=== PATIENT | female | born 1955 | race Two or more races ===

== ENCOUNTER 2025-01-10 23:37 | Emergency (ER) | payer OTHER ==
[~2025-01-10] VITALS: Ht 152.4 cm; Wt 85.7 kg
[2025-01-10 23:58] VITALS: BP 158/85; O2SAT 96
[2025-01-11] MEDS ORDERED: SYNTHROID75 MCG PO (02:03)
[2025-01-11] MEDS ORDERED: ACETAMINOPHEN 500 MG GEL..CAP PO STA (02:10)
[2025-01-11] MEDS ORDERED: ORPHENADRINE CITRATE 30 MG/ML AMPUL IM STA (02:10)
[2025-01-11] MEDS ORDERED: ACETAMINOPHEN 500 MG GEL..CAP PO ONE (02:21)
[2025-01-11] MEDS ORDERED: ORPHENADRINE CITRATE 30 MG/ML AMPUL ONE (02:21)
[2025-01-11 03:07] LABS: PH,URINE 5.5 (5.0-8.0); URINE APPEARANCE Clear; URINE BILIRRUBIN Negative (NEGATIVE); URINE BLOOD Small; URINE COLOR Yellow; URINE GLUCOSE Negative (NEGATIVE); URINE KETONE Negative (NEGATIVE); URINE LEUKOCYTE Negative; URINE NITRATE Negative; URINE PROTEIN Negative (NEGATIVE); URINE UROBILINOGEN 0.2 E.U./dl
[2025-01-11 03:11] LABS: URINE BACTERIA 392.7 uL (0.0-1933); URINE EPITHELIAL CELLS 6.7 uL (0.0-38.8); URINE RBC 4.2 uL (0.0-20.8); URINE WBC 7.2 uL (0.0-23.2)
[2025-01-11 03:15] LABS: BASO % 0.7 % (0.1-1.2); EOS # 0.46 (0.04-0.54); EOS % 5.4 % (0.7-7.0); HEMATOCRIT 36.4 % (34.1-44.9); HEMOGLOBIN 11.9 g/dL (11.2-15.7); MEAN CORPUSCULAR HEMOGLOBIN 29.3 pg (25.6-32.2); MONO # 0.58 (0.24-0.82); MONO % 6.8 % (4.7-12.5); NEUT # 5.11 (1.56-6.13); NEUT % 59.9 % (34.0-71.1); PLATELET COUNT 240 K/uL (163-369); RED BLOOD COUNT 4.06 M/uL (3.93-5.22); RED CELL DISTRIBUTION WIDTH 13.2 % (11.6-14.4)
[2025-01-11 03:27] LABS: ALBUMIN 3.7 gm/dL (3.4-5.0); BILIRUBIN TOTAL 0.3 mg/dL (0.3-1.2); CALCIUM 9.2 mg/dL (8.5-10.1); CREATININE SERUM 0.56 mg/dL (0.55-1.02); GFR 107.65; POTASSIUM 4.02 mEq/L (3.5-5.1); TOTAL PROTEIN 6.7 gm/dL (6.4-8.2)
== END 2025-01-11 04:51 ==
LOC: ER 01-11 00:36
PROVIDERS: General Practice
DX: R22.43 Localized swelling, mass and lump, lower limb, bilateral (principal); M79.89 Other specified soft tissue disorders; E03.8 Other specified hypothyroidism; Z88.0 Allergy status to penicillin; Z88.6 Allergy status to analgesic agent